=== PATIENT | male | born 1995 | race Two or more races ===

== ENCOUNTER 2024-01-06 12:40 | Emergency (ER) | payer MEDICAID, OTHER ==
[~2024-01-06] VITALS: Ht 180.3 cm; Wt 74.6 kg
[2024-01-06 13:31] VITALS: BP 151/89; PULSE 88; RESP 18; TEMP 98.4; O2SAT 96
== END 2024-01-06 14:50 | disposition home or self-care (01) ==
LOC: ER 12:40
DX: S80.12XA Contusion of left lower leg, initial encounter (principal); S40.812A Abrasion of left upper arm, initial encounter; R51.9 Headache, unspecified; V49.88XA Car occupant (driver) (passenger) injured in other specified transport accidents, initial encounter; Y93.89 Activity, other specified; Y92.411 Interstate highway as the place of occurrence of the external cause; Y99.8 Other external cause status
CPT/HCPCS: 70450; 73590